=== PATIENT | female | born 1980 | race Caucasian/White ===

== ENCOUNTER 2016-04-23 19:29 | Emergency (ER) | payer MEDICARE, MEDICAID ==
[~2016-04-23] VITALS: Ht 167.6 cm; Wt 89.8 kg
[2016-04-24 00:30] VITALS: BP 177/119
[2016-04-24] MEDS ORDERED: HYDROmorphone HCL 2 MG/ML VL IM ONE (01:30)
[2016-04-24] MEDS ORDERED: ONDANSETRON HCL 4 MG/2 ML VIAL IM ONE (01:30)
== END 2016-04-24 02:19 | disposition home or self-care (01) ==
LOC: ER 19:32
DX: S63.501A Unspecified sprain of right wrist, initial encounter (principal); M54.41 Lumbago with sciatica, right side; I10 Essential (primary) hypertension; E78.5 Hyperlipidemia, unspecified; M54.9 Dorsalgia, unspecified; Z88.6 Allergy status to analgesic agent; G89.29 Other chronic pain; F17.210 Nicotine dependence, cigarettes, uncomplicated; W01.0XXA Fall on same level from slipping, tripping and stumbling without subsequent striking against object, initial encounter; Y93.89 Activity, other specified; Y99.8 Other external cause status; Y92.89 Other specified places as the place of occurrence of the external cause
CPT/HCPCS: 72131; 73110; 73130; 96372; 99284; J1170; J2405

== ENCOUNTER 2016-05-09 15:39 | Emergency (ER) | payer MEDICARE, MEDICAID ==
[~2016-05-09] VITALS: Ht 167.6 cm; Wt 77.1 kg
[2016-05-09 15:55] VITALS: BP 183/86
== END 2016-05-09 23:05 | disposition left against medical advice (07) ==
LOC: EDUNIT# 15:39 → ER 16:05
DX: M54.9 Dorsalgia, unspecified (principal); Z53.21 Procedure and treatment not carried out due to patient leaving prior to being seen by health care provider

== ENCOUNTER 2016-05-31 06:38 | Emergency (ER) | payer MEDICARE, MEDICAID ==
[~2016-05-31] VITALS: Ht 167.6 cm; Wt 81.6 kg
[2016-05-31 08:36] LABS: Basophils # (auto) 0 uL; Basophils % (auto) 0.4 % (0.0-2.0); Eosinophils # (auto) 0 uL; Eosinophils % (auto) 0.4 % (0.0-7.0); Hemoglobin 15.5 g/dL (12.2-16.2); Lymphocytes # (auto) 3.8 uL; Lymphocytes % (auto) 32.9 % (10.0-50.0); Mean Corpuscular Hemoglobin 29.5 pg (28.0-32.0); Mean Corpuscular Hgb Conc. 33.6 g/dL (32.0-36.0); Mean Corpuscular Volume 87.9 fL (80.0-100.0); Mean Platelet Volume 8.8 fL (7.4-10.4); Monocytes # (auto) 0.5 uL; Monocytes % (auto) 4.4 % (0.0-12.0); Neutrophils # (auto) 7.1 uL; Neutrophils % (auto) 61.9 % (37.0-80.0); Platelet Count (auto) 333 10^3/uL (140-450); Red Cell Distribution Width 13.5 % (11.6-16.0); White Blood Cell 11.4 10^3/uL (4.4-10.8)
[2016-05-31] MEDS ORDERED: cloNIDine HCL 0.1 MG TAB PO ONE (08:45)
[2016-05-31 09:03] LABS: Albumin 3.7 g/dL (3.4-5.0); BUN/Creatinine Ratio 20.2; Bilirubin, Total 0.6 mg/dL (0.2-1.0); Calcium 9.2 mg/dL (8.5-10.1); Potassium 3.8 mmol/L (3.5-5.1); Total Protein 7.7 g/dL (6.4-8.2)
[2016-05-31 10:09] VITALS: BP 146/100
== END 2016-05-31 11:09 | disposition left against medical advice (07) ==
LOC: ER 06:42
DX: Z11.3 Encounter for screening for infections with a predominantly sexual mode of transmission (principal); E78.5 Hyperlipidemia, unspecified; I10 Essential (primary) hypertension; F20.9 Schizophrenia, unspecified; Z90.49 Acquired absence of other specified parts of digestive tract; Z88.6 Allergy status to analgesic agent; Z90.710 Acquired absence of both cervix and uterus; T74.21XA Adult sexual abuse, confirmed, initial encounter; Y93.89 Activity, other specified; Y99.8 Other external cause status; Y92.89 Other specified places as the place of occurrence of the external cause
CPT/HCPCS: 36415; 80053; 85025

== ENCOUNTER 2022-08-08 14:51 | Inpatient (IN) | payer MEDICAID, MEDICARE ==
[~2022-08-08] VITALS: Ht 160 cm; Wt 96.8 kg
[2022-08-08] VITALS (17 sets, daily range): BP systolic 112–236; BP diastolic 80–151
[2022-08-08 15:23] LABS: Basophils # (auto) 0.1 10 ^3/uL (0-0.2); Basophils % (auto) 0.4 % (0.0-2.0); Eosinophils # (auto) 0.2 10 ^3/uL (0-0.8); Eosinophils % (auto) 1.3 % (0.0-7.0); Hematocrit 45.4 % (36.0-46.0); Hemoglobin 15.1 g/dL (12.2-16.2); Lymphocytes # (auto) 4.7 10 ^3/uL (0.4-5.4); Mean Corpuscular Hemoglobin 29.2 pg (28.0-32.0); Mean Corpuscular Hgb Conc. 33.3 g/dL (32.0-36.0); Mean Corpuscular Volume 87.8 fL (80.0-100.0); Monocytes # (auto) 0.8 10 ^3/uL (0-1.3); Monocytes % (auto) 6.1 % (0.0-12.0); Neutrophils % (auto) 55.2 % (37.0-80.0); Nucleated Red Blood Cells % 0.5 %; Red Blood Cells 5.17 10^6/uL (4.0-5.20); Red Cell Distribution Width 13.4 % (11.8-14.3); White Blood Cell 12.6 10^3/uL (4.4-10.8)
[2022-08-08] MEDS ORDERED: LABETALOL HCL 5 MG/ML 4ML SYRINGE IV ONE (15:45)
[2022-08-08 15:48] LABS: INR 0.92 (0.9-1.15); Partial Thromboplastin Time 23.9 sec (24.6-33.4)
[2022-08-08 16:03] LABS: Chloride 110 mmol/L (98-107); Potassium 3.7 mmol/L (3.5-5.1); Sodium 138 mmol/L (136-145)
[2022-08-08 16:05] LABS: Salicylate 3.5 mg/dL (2.8-20.0)
[2022-08-08 16:14] LABS: Alanine Aminotransferase 65 U/L (13-56); Albumin 3.8 g/dL (3.4-5.0); Alkaline Phosphatase 155 U/L (45-117); Anion Gap 7 (5-15); Aspartate Aminotransferase 26 U/L (15-37); BUN/Creatinine Ratio 29.4 (10.0-20.0); Bilirubin, Total 0.5 mg/dL (0.2-1.0); Blood Alcohol < 3.0 mg/dL (0-5); Blood Urea Nitrogen 15 mg/dL (7-18); Calcium 8.8 mg/dL (8.5-10.1); Carbon Dioxide 21 mmol/L (21-32); GFR African American 172 mL/min; GFR Non-African American 142 mL/min; Glucose 155 mg/dL (74-106); Magnesium 2.5 mg/dL (1.6-2.6); Total Protein 7.3 g/dL (6.4-8.2)
[2022-08-08 16:17] LABS: Acetaminophen < 2.0 ug/mL (10-30)
[2022-08-08 16:31] LABS: Urine Bacteria NONE SEEN /hpf (None Seen); Urine Blood TRACE /uL (Negative); Urine Hyaline Cast FEW /lpf (0 - 2); Urine Mucus FEW (None Seen); Urine Specific Gravity 1.013 (1.001-1.035); Urine WBC 1 /hpf (0 - 5)
[2022-08-08 16:41] LABS: Alcohol, Urine < 3.0 mg/dL (0-10); Amphetamine Screen, Urine POSITIVE (NEGATIVE); Barbiturate Scree,Urine NEGATIVE (NEGATIVE); Benzodiazephine Screen, Urine NEGATIVE (NEGATIVE); Cannabinoid Screen, Urine NEGATIVE (NEGATIVE)
[2022-08-08 16:49] LABS: Cocaine Screen, Urine NEGATIVE (NEGATIVE); Opiate Scree,Urine NEGATIVE (NEGATIVE); Phencyclidine Screen, Urine NEGATIVE (NEGATIVE)
[2022-08-08] MEDS ORDERED: hydrALAZINE HCL 20 MG/ML VL IV ONE (17:30)
[2022-08-08] MEDS: KETAMINE HCL 500 MG in SODIUM CHL 0.9% 490 ML IV SCH (18:04)
[2022-08-08] MEDS ORDERED: MORPHINE SULFATE INJ 2 MG/ml SYRG IV PRN (19:15)
[2022-08-08] MEDS ORDERED: NITROGLYCERIN 0.4 MG SL TAB SL PRN (19:15)
[2022-08-08] MEDS ORDERED: PANTOPRAZOLE 40 MG/10 ML VIAL INJ IV ONE (19:30)
[2022-08-08] MEDS ORDERED: ENOXAPARIN SOD 40 MG/0.4 ML SYRINGE SC ONE (19:30)
[2022-08-08] MEDS: MIDAZOLAM DRIP 50 mg/50mL 50 ML IV SCH (19:48)
[2022-08-08] MEDS: hydrALAZINE HCL 20 MG/ML VL IV PRN (20:43)
[2022-08-08] MEDS: CEFEPIME 1GM/ 50ML 50 ML IV SCH (22:32)
[2022-08-09] VITALS (107 sets, daily range): BP systolic 109–168; BP diastolic 63–109
[2022-08-09] MEDS: MIDAZOLAM DRIP 50 mg/50mL 50 ML IV SCH ×4 (00:47→23:03)
[2022-08-09] MEDS ORDERED: NIFE1TAB31 PO (01:58)
[2022-08-09] MEDS ORDERED: IRBE300T43 PO (02:00)
[2022-08-09] MEDS ORDERED: IBUP800T27 PO (02:00)
[2022-08-09] MEDS ORDERED: METO-289 PO (02:01)
[2022-08-09] MEDS ORDERED: DOCU100T15 PO (02:01)
[2022-08-09] MEDS ORDERED: FURO20TA3 PO (02:03)
[2022-08-09] MEDS: KETAMINE HCL 500 MG in SODIUM CHL 0.9% 490 ML IV SCH (03:28)
[2022-08-09 04:26] LABS: Basophils # (auto) 0 10 ^3/uL (0-0.2); Basophils % (auto) 0.2 % (0.0-2.0); Eosinophils # (auto) 0 10 ^3/uL (0-0.8); Eosinophils % (auto) 0.1 % (0.0-7.0); Hematocrit 42.4 % (36.0-46.0); Hemoglobin 14.1 g/dL (12.2-16.2); Lymphocytes # (auto) 2.7 10 ^3/uL (0.4-5.4); Lymphocytes % (auto) 12.3 % (10.0-50.0); Mean Corpuscular Hemoglobin 28.9 pg (28.0-32.0); Mean Corpuscular Hgb Conc. 33.4 g/dL (32.0-36.0); Mean Corpuscular Volume 86.5 fL (80.0-100.0); Monocytes # (auto) 0.9 10 ^3/uL (0-1.3); Monocytes % (auto) 3.8 % (0.0-12.0); Neutrophils # (auto) 18.6 10 ^3/uL (1.6-8.6); Neutrophils % (auto) 83.6 % (37.0-80.0); Nucleated Red Blood Cells % 0.1 %; Red Cell Distribution Width 13.3 % (11.8-14.3); White Blood Cell 22.3 10^3/uL (4.4-10.8)
[2022-08-09 04:40] LABS: Albumin 3.1 g/dL (3.4-5.0); Calcium 8.4 mg/dL (8.5-10.1); Potassium 3.4 mmol/L (3.5-5.1)
[2022-08-09 04:43] LABS: BUN/Creatinine Ratio 17.9 (10.0-20.0); Bilirubin, Total 0.7 mg/dL (0.2-1.0)
[2022-08-09] MEDS: CEFEPIME 1GM/ 50ML 50 ML IV SCH ×3 (07:29→21:46)
[2022-08-09] MEDS: ENOXAPARIN SOD 40 MG/0.4 ML SYRINGE SC SCH (11:02)
[2022-08-09] MEDS: PANTOPRAZOLE 40 MG/10 ML VIAL INJ IV SCH (11:02)
[2022-08-09] MEDS ORDERED: ACETAMINOPHEN 650 mg PER 20.3 mL UD GT PRN (15:00)
[2022-08-09] MEDS: fentaNYL Drip 2500mCg/250mlNS 250 ML IV SCH (15:15)
[2022-08-09] MEDS: PIPERACILLIN-TAZOB 3.375GM 100 ML IV SCH (17:48)
[2022-08-10] VITALS (105 sets, daily range): BP systolic 91–156; BP diastolic 54–100
[2022-08-10] MEDS: PIPERACILLIN-TAZOB 3.375GM 100 ML IV SCH ×5 (00:12→23:45)
[2022-08-10] MEDS: hydrALAZINE HCL 20 MG/ML VL IV PRN (00:12)
[2022-08-10 04:08] LABS: Basophils # (auto) 0 10 ^3/uL (0-0.2); Basophils % (auto) 0.3 % (0.0-2.0); Eosinophils # (auto) 0.2 10 ^3/uL (0-0.8); Eosinophils % (auto) 1.2 % (0.0-7.0); Hematocrit 37.7 % (36.0-46.0); Hemoglobin 12.5 g/dL (12.2-16.2); Lymphocytes # (auto) 3.7 10 ^3/uL (0.4-5.4); Lymphocytes % (auto) 26.6 % (10.0-50.0); Mean Corpuscular Hemoglobin 28.8 pg (28.0-32.0); Mean Corpuscular Hgb Conc. 33.1 g/dL (32.0-36.0); Monocytes # (auto) 0.8 10 ^3/uL (0-1.3); Monocytes % (auto) 5.6 % (0.0-12.0); Neutrophils # (auto) 9.1 10 ^3/uL (1.6-8.6); Neutrophils % (auto) 66.3 % (37.0-80.0); Red Blood Cells 4.33 10^6/uL (4.0-5.20); Red Cell Distribution Width 13.4 % (11.8-14.3); White Blood Cell 13.8 10^3/uL (4.4-10.8)
[2022-08-10 04:27] LABS: Calcium 8.4 mg/dL (8.5-10.1)
[2022-08-10 04:29] LABS: BUN/Creatinine Ratio 18.2 (10.0-20.0)
[2022-08-10] MEDS: CEFEPIME 1GM/ 50ML 50 ML IV SCH ×2 (05:54→14:45)
[2022-08-10] MEDS: MIDAZOLAM DRIP 50 mg/50mL 50 ML IV SCH (06:23)
[2022-08-10] MEDS ORDERED: HYDR25TA5 GT (08:13)
[2022-08-10] MEDS ORDERED: ARIP1TAB7 PO (08:13)
[2022-08-10] MEDS ORDERED: DULO20CA PO (08:13)
[2022-08-10] MEDS ORDERED: CARI1CAP5 PO (08:13)
[2022-08-10] MEDS ORDERED: OLAN20TA PO (08:13)
[2022-08-10] MEDS ORDERED: TRAZ1TAB12 PO (08:13)
[2022-08-10] MEDS: PANTOPRAZOLE 40 MG/10 ML VIAL INJ IV SCH (09:43)
[2022-08-10] MEDS: DULoxetine HCL 30 MG CAP PO SCH (09:44)
[2022-08-10] MEDS: ENOXAPARIN SOD 40 MG/0.4 ML SYRINGE SC SCH (09:44)
[2022-08-10] MEDS: OLANZapine 5 MG TAB PO SCH (09:44)
[2022-08-10] MEDS ORDERED: DULoxetine HCL 30 MG CAP PO SCH (10:00)
[2022-08-10] MEDS: fentaNYL Drip 2500mCg/250mlNS 250 ML IV SCH (12:30)
[2022-08-10] MEDS ORDERED: POTASSIUM EFFERVESENT TAB 25 MEQ GT ONE (15:45)
[2022-08-10] MEDS: traZODone HCL 50 MG TAB PO SCH (21:47)
[2022-08-11] VITALS (58 sets, daily range): BP systolic 86–139; BP diastolic 50–94
[2022-08-11 03:42] LABS: Basophils # (auto) 0.1 10 ^3/uL (0-0.2); Basophils % (auto) 0.8 % (0.0-2.0); Eosinophils # (auto) 0.3 10 ^3/uL (0-0.8); Eosinophils % (auto) 3.8 % (0.0-7.0); Hematocrit 34.2 % (36.0-46.0); Hemoglobin 11.5 g/dL (12.2-16.2); Lymphocytes # (auto) 2.7 10 ^3/uL (0.4-5.4); Lymphocytes % (auto) 36.6 % (10.0-50.0); Mean Corpuscular Hemoglobin 29.1 pg (28.0-32.0); Mean Corpuscular Hgb Conc. 33.7 g/dL (32.0-36.0); Mean Corpuscular Volume 86.4 fL (80.0-100.0); Monocytes # (auto) 0.7 10 ^3/uL (0-1.3); Monocytes % (auto) 8.9 % (0.0-12.0); Neutrophils # (auto) 3.7 10 ^3/uL (1.6-8.6); Neutrophils % (auto) 49.9 % (37.0-80.0); Nucleated Red Blood Cells % 0.1 %; Red Blood Cells 3.96 10^6/uL (4.0-5.20); Red Cell Distribution Width 13.1 % (11.8-14.3); White Blood Cell 7.4 10^3/uL (4.4-10.8)
[2022-08-11 03:55] LABS: Calcium 8.7 mg/dL (8.5-10.1); Potassium 3.4 mmol/L (3.5-5.1)
[2022-08-11 03:58] LABS: BUN/Creatinine Ratio 26.8 (10.0-20.0)
[2022-08-11] MEDS: PIPERACILLIN-TAZOB 3.375GM 100 ML IV SCH ×4 (06:14→23:43)
[2022-08-11] MEDS: DULoxetine HCL 30 MG CAP PO SCH (09:37)
[2022-08-11] MEDS: OLANZapine 5 MG TAB PO SCH (09:37)
[2022-08-11] MEDS: PANTOPRAZOLE 40 MG/10 ML VIAL INJ IV SCH (09:37)
[2022-08-11] MEDS: ENOXAPARIN SOD 40 MG/0.4 ML SYRINGE SC SCH (09:38)
[2022-08-11] MEDS: fentaNYL Drip 2500mCg/250mlNS 250 ML IV SCH (12:30)
[2022-08-11] MEDS: HYDROcodone-ACET 10/325MG TAB PO PRN (15:55)
[2022-08-11] MEDS: MIDAZOLAM DRIP 50 mg/50mL 50 ML IV SCH (19:25)
[2022-08-11] MEDS: traZODone HCL 50 MG TAB PO SCH (21:38)
[2022-08-12] VITALS (23 sets, daily range): BP systolic 108–144; BP diastolic 69–95
[2022-08-12] MEDS: HYDROcodone-ACET 10/325MG TAB PO PRN ×2 (00:19→13:36)
[2022-08-12 04:27] LABS: Calcium 8.7 mg/dL (8.5-10.1); Potassium 3.6 mmol/L (3.5-5.1)
[2022-08-12 04:30] LABS: BUN/Creatinine Ratio 24.6 (10.0-20.0)
[2022-08-12 04:33] LABS: Hematocrit 31.6 % (36.0-46.0); Hemoglobin 10.8 g/dL (12.2-16.2); Mean Corpuscular Hemoglobin 29.6 pg (28.0-32.0); Mean Corpuscular Hgb Conc. 34.1 g/dL (32.0-36.0); Mean Corpuscular Volume 86.9 fL (80.0-100.0); Red Blood Cells 3.64 10^6/uL (4.0-5.20); Red Cell Distribution Width 13.4 % (11.8-14.3)
[2022-08-12 04:39] LABS: Basophils % (manual) 0 (0.0-2.0); Blast Cells 0; Eosinophils % (manual) 0 (0-7); Metamyelocytes % 0; Myelocytes % 0; Promyelocytes % 0; Reactive Lymphocytes 0
[2022-08-12 05:27] LABS: Band Neutrophils % (manual) 54; Lymphocytes % (manual) 5 (10.0-50.0); Monocytes % (manual) 9 (0-12)
[2022-08-12] MEDS: PIPERACILLIN-TAZOB 3.375GM 100 ML IV SCH ×4 (05:46→23:58)
[2022-08-12] MEDS: PANTOPRAZOLE 40 MG/10 ML VIAL INJ IV SCH (09:40)
[2022-08-12] MEDS: DULoxetine HCL 30 MG CAP PO SCH (09:40)
[2022-08-12] MEDS: OLANZapine 5 MG TAB PO SCH (09:40)
[2022-08-12] MEDS: ENOXAPARIN SOD 40 MG/0.4 ML SYRINGE SC SCH (09:40)
[2022-08-12] MEDS: fentaNYL Drip 2500mCg/250mlNS 250 ML IV SCH (11:23)
[2022-08-12] MEDS: MIDAZOLAM DRIP 50 mg/50mL 50 ML IV SCH (19:45)
[2022-08-12] MEDS: traZODone HCL 50 MG TAB PO SCH (22:26)
[2022-08-13] VITALS (18 sets, daily range): BP systolic 123–158; BP diastolic 84–106
[2022-08-13] MEDS: PIPERACILLIN-TAZOB 3.375GM 100 ML IV SCH ×3 (06:42→17:03)
[2022-08-13] MEDS: OLANZapine 5 MG TAB PO SCH (09:17)
[2022-08-13] MEDS: DULoxetine HCL 30 MG CAP PO SCH (09:17)
[2022-08-13] MEDS: PANTOPRAZOLE 40 MG/10 ML VIAL INJ IV SCH (09:17)
[2022-08-13] MEDS: ENOXAPARIN SOD 40 MG/0.4 ML SYRINGE SC SCH (09:17)
[2022-08-13] MEDS: fentaNYL Drip 2500mCg/250mlNS 250 ML IV SCH (12:30)
[2022-08-13] MEDS: HYDROcodone-ACET 10/325MG TAB PO PRN (12:49)
[2022-08-13] MEDS: MIDAZOLAM DRIP 50 mg/50mL 50 ML IV SCH (19:45)
[2022-08-13] MEDS: traZODone HCL 50 MG TAB PO SCH (22:02)
[2022-08-14] VITALS (21 sets, daily range): BP systolic 125–166; BP diastolic 62–99
[2022-08-14] MEDS: PIPERACILLIN-TAZOB 3.375GM 100 ML IV SCH ×4 (00:25→20:36)
[2022-08-14] MEDS: HYDROcodone-ACET 10/325MG TAB PO PRN ×2 (06:47→16:58)
[2022-08-14] MEDS: ENOXAPARIN SOD 40 MG/0.4 ML SYRINGE SC SCH (09:43)
[2022-08-14] MEDS: DULoxetine HCL 30 MG CAP PO SCH (09:43)
[2022-08-14] MEDS: OLANZapine 5 MG TAB PO SCH (09:44)
[2022-08-14] MEDS: PANTOPRAZOLE 40 MG/10 ML VIAL INJ IV SCH (09:44)
[2022-08-14] MEDS: fentaNYL Drip 2500mCg/250mlNS 250 ML IV SCH (12:26)
[2022-08-14] MEDS: MIDAZOLAM DRIP 50 mg/50mL 50 ML IV SCH (20:35)
== END 2022-08-14 21:45 | DRG 720 ==
LOC: EDUNIT# 14:51 → ER 14:51 → EDBD 14:51 → TELE 19:16 → ICU WEST 21:00
PROVIDERS: ADMIT Nurse Practitioner Family; ATTEND Internal Medicine
PROC: 0BH17EZ Insertion of Endotracheal Airway into Trachea, Via Natural or Artificial Opening (ICD-10-PCS; principal; 2022-08-08)
PROC: 5A1945Z Respiratory Ventilation, 24-96 Consecutive Hours (ICD-10-PCS; 2022-08-08)
DX: A41.9 Sepsis, unspecified organism (principal); J96.01 Acute respiratory failure with hypoxia; J69.0 Pneumonitis due to inhalation of food and vomit; G92.8 Other toxic encephalopathy; T50.902A Poisoning by unspecified drugs, medicaments and biological substances, intentional self-harm, initial encounter; F25.9 Schizoaffective disorder, unspecified; E66.01 Morbid (severe) obesity due to excess calories; I10 Essential (primary) hypertension; E78.5 Hyperlipidemia, unspecified; F31.9 Bipolar disorder, unspecified; F17.210 Nicotine dependence, cigarettes, uncomplicated; F15.10 Other stimulant abuse, uncomplicated; Z81.8 Family history of other mental and behavioral disorders; Z91.51 Personal history of suicidal behavior; Z88.5 Allergy status to narcotic agent; Z90.49 Acquired absence of other specified parts of digestive tract; Z90.710 Acquired absence of both cervix and uterus; Y92.89 Other specified places as the place of occurrence of the external cause
CPT/HCPCS: 31500; 36415; 36556; 36600; 70450; 71045; 80048; 80053; 80307; 80320; 80329; 81001; 82805; 83605; 83615; 83735; 84484; 84702; 85007; 85025; 85027; 85610; 85730; 87040; 87070; 87081; 87086; 87205; 93005; 93306; 94002; 94003; 96372; 96374; 96375; 97110; 97116; 97163; C9113; G0378; J2250; J2543; J3490; J7060